=== PATIENT | female | born 1965 | race Caucasian/White ===

== ENCOUNTER → 2016-05-25 | Outpatient (CLI) | payer SELFPAY | LOC: LAB 17:11 | DX: J02.9 Acute pharyngitis, unspecified (principal); R05 Cough; R42 Dizziness and giddiness ==

== ENCOUNTER → 2016-10-29 | Outpatient (CLI) | payer OTHER ==
--- NOTE | 2016-11-11 09:46 | RADIOLOGY REPORT PS360 ---
DIG MAMM-SCREEN EMMETT W/CAD CAD Screening ORDERING PHYSICIAN : Jeferson Barbour MD PATIENT AGE: 51 years GENDER: Female COMPARISON: Previous mammograms: Prior studies from [facility] now finally available for comparison these are dated June 27, 2014 INDICATION: Routine screening 51-year-old no hormones no new complaints Family history: 6 maternal aunts with breast cancer TECHNIQUE: Standard CC and MLO images were obtained. R2 CAD reviewed. FINDINGS: Mild/Moderate density breast with no dominant mass nor suspicious calcification. . No architectural distortion. Some scattered tiny areas of minor nodularity in both breast have remained reasonably stable since previous outside studies and follow-up in one year the adequate, and would be encouraged CAD review highlights no areas of concern either bilateral follow-up in one year recommended IMPRESSION: No significant areas of concern No significant interval change Follow-up in one year recommended and should be encouraged BI-RADS CATEGORY: 2_Benign RECOMMENDED FOLLOWUP: 12M 12 MONTH FOLLOW-UP (A letter has been sent to the patient regarding results of the study.)
== END ==
LOC: RAD 09:30
DX: Z12.31 Encounter for screening mammogram for malignant neoplasm of breast (principal)
CPT/HCPCS: G0202

== ENCOUNTER 2016-10-30 07:35 | Day surgery (SDC) | payer OTHER ==
[2016-10-30 08:13] LABS: HEMOGLOBIN 17.2 g/dL (12.2-16.2); LYMPH # 3.4 K/mm3 (0.7-4.5); LYMPH % 31.5 % (10-50.0)
[2016-10-30 08:24] LABS: BUN 18 mg/dL (7-18)
[2016-10-30 08:26] LABS: GFR (ESTIMATED) 75 ML/MIN (59-)
--- NOTE | 2016-10-30 13:56 | RADIOLOGY REPORT PS360 ---
CARDIAC CATHETERIZATION DATE OF CATHETERIZATION:10/30/2016 10:58 AM PROCEDURES: 1. Left heart catheterization 2. Left ventriculogram 3. Selective coronary gram INDICATION FOR TEST: 1. Abnormal Myoview 2. Risk factors for coronary artery disease 3. Angina pectoris Informed consent was obtained prior to the procedure. COMPLICATIONS: None ESTIMATED BLOOD LOSS: Less than 10 ml. TECHNIQUE: One percent lidocaine used to anesthetize the right anterior aspect of the wrist. The right radial artery was accessed via the Seldinger technique. A 6 [place] sheath was placed in the right radial artery. 2.5 mg of verapamil, 800 mcg of nitroglycerin and 5000 U Heparin were given through the arterial sheath. The Ada catheter was also used to perform left heart catheterization and left ventriculography. At the end of the procedure the patient was transferred to the post-op holding area in stable condition for arterial sheath removal. ANGIOGRAPHIC RESULTS: 1. The left main artery normal 2. The left anterior descending artery normal 3. The circumflex artery normal 4. The right coronary artery dominant normal 5. The RODRIGUEZ ventriculogram reveals hyperdynamic at 75% 6. The left ventricular end-diastolic pressure 15 mmHg IMPRESSION: 1. Normal coronary arteries. 2. Hyperdynamic ventricle consistent with hypertensive heart disease 3. Mildly elevated LVEDP also consistent with hypertensive heart disease PLAN: 1. Risk factor modification 2. Patient may benefit from that her control of hypertension which will result in lowering of the LVEDP
[2016-10-30 15:12] VITALS: BP 118/46
== END 2016-10-30 15:00 | disposition home or self-care (01) ==
LOC: CATHLAB 07:35
PROVIDERS: Internal Medicine
PROC: 4A023N7 Measurement of Cardiac Sampling and Pressure, Left Heart, Percutaneous Approach (ICD-10-PCS; principal; 2016-10-30)
PROC: B2111ZZ Fluoroscopy of Multiple Coronary Arteries using Low Osmolar Contrast (ICD-10-PCS; 2016-10-30)
PROC: B2151ZZ Fluoroscopy of Left Heart using Low Osmolar Contrast (ICD-10-PCS; 2016-10-30)
DX: R07.9 Chest pain, unspecified (principal); I11.9 Hypertensive heart disease without heart failure; R94.39 Abnormal result of other cardiovascular function study; I20.9 Angina pectoris, unspecified